=== PATIENT | female | born 1960 | race Hispanic/Latino ===

== ENCOUNTER 2023-05-12 10:36 | Outpatient (CLI) | payer OTHER | END 2023-05-12 10:37 | disposition home or self-care (01) | LOC: BICMRI 10:36 | PROVIDERS: ATTEND Family Medicine | DX: S80.01XD Contusion of right knee, subsequent encounter (principal); M17.11 Unilateral primary osteoarthritis, right knee; S83.241D Other tear of medial meniscus, current injury, right knee, subsequent encounter ==